=== PATIENT | female | born 1975 | race Caucasian/White ===

== ENCOUNTER 2017-04-27 23:08 | Emergency (ER) | payer OTHER ==
[~2017-04-27] VITALS: Ht 165.1 cm; Wt 108.0 kg
[~2017-04-27 23:08] MED LIST: ESTMED1.5T; NAPR550 PO
[2017-04-28] MEDS ORDERED: Cleocin HCl150 MG PO (00:26)
[2017-05-11] MEDS ORDERED: BUPR150ER (13:31)
[2017-05-11] MEDS ORDERED: Excedrin Extra1 EACH (13:31)
[2017-05-11] MEDS ORDERED: NICO21TP (13:31)
[2017-05-11] MEDS ORDERED: OXYB5 (13:32)
[2017-05-11] MEDS ORDERED: ESTR2 (13:32)
[2017-05-11] MEDS ORDERED: SOLI5 (13:32)
[2017-05-11] MEDS ORDERED: Progestero50 MG/1 M1 (13:33)
== END 2017-04-28 00:35 | disposition home or self-care (01) ==
LOC: ER 23:08
DX: K04.7 Periapical abscess without sinus (principal); F41.9 Anxiety disorder, unspecified; I10 Essential (primary) hypertension; Z87.891 Personal history of nicotine dependence
CPT/HCPCS: 96365; 96375; 99283; J2930

== ENCOUNTER 2017-05-18 12:06 | Day surgery (SDC) | payer OTHER ==
[~2017-05-18] VITALS: Ht 165.1 cm; Wt 107.2 kg
[~2017-05-18 12:06] MED LIST changes: +BUPR150ER; +Cleocin HCl150 MG PO; +ESTR2; +Excedrin Extra1 EACH; +NICO21TP; +OXYB5; +Progestero50 MG/1 M1; +SOLI5
[2017-05-18] MEDS ORDERED: RANI150 PO (13:12)
[2017-05-18] MEDS ORDERED: NAPR500 PO (13:13)
== END 2017-05-18 15:45 | disposition home or self-care (01) ==
LOC: ORSCSDS 12:06
PROVIDERS: Internal Medicine Gastroenterology
PROC: 0DB68ZX Excision of Stomach, Via Natural or Artificial Opening Endoscopic, Diagnostic (ICD-10-PCS; principal; 2017-05-18 13:30)
PROC: 0DB58ZX Excision of Esophagus, Via Natural or Artificial Opening Endoscopic, Diagnostic (ICD-10-PCS; principal; 2017-05-18 13:30)
PROC: 0DBP8ZX Excision of Rectum, Via Natural or Artificial Opening Endoscopic, Diagnostic (ICD-10-PCS; principal; 2017-05-18 13:30)
DX: R12 Heartburn (principal); K22.70 Barrett's esophagus without dysplasia; K62.1 Rectal polyp; Z12.11 Encounter for screening for malignant neoplasm of colon; Z80.0 Family history of malignant neoplasm of digestive organs; I10 Essential (primary) hypertension; J45.909 Unspecified asthma, uncomplicated; E11.9 Type 2 diabetes mellitus without complications; F17.210 Nicotine dependence, cigarettes, uncomplicated; Z79.899 Other long term (current) drug therapy
CPT/HCPCS: 88305; 88342; J2250; J2405; J7120

== ENCOUNTER 2017-09-07 23:53 | Emergency (ER) | payer OTHER ==
[~2017-09-07] VITALS: Ht 165.1 cm; Wt 108.0 kg
[~2017-09-07 23:53] MED LIST changes: +NAPR500 PO; +RANI150 PO
[2017-09-08] MEDS ORDERED: Esgic Tablet1 EACH PO (03:48)
== END 2017-09-08 04:11 | disposition home or self-care (01) ==
LOC: ER 23:53
DX: R51 Headache (principal); Z88.8 Allergy status to other drugs, medicaments and biological substances; Z79.899 Other long term (current) drug therapy; F41.9 Anxiety disorder, unspecified; Z87.891 Personal history of nicotine dependence
CPT/HCPCS: 70450; 96374; 96375; 99284-25; J1200; J1885; J2765; J3010